=== PATIENT | female | born 1970 | race Caucasian/White ===

== ENCOUNTER → 2018-11-07 | Outpatient (CLI) | payer OTHER ==
--- NOTE | 2018-11-12 17:11 | MAM ---
EXAM DESCRIPTION: 3D Screening BILATERAL : Digital Mammography. CLINICAL HISTORY: 48 years Female ANNUAL SCREENING . No complaints. No personal or family history of breast cancer. Childbirth. Premenopausal. No HRT. Lifetime risk of developing breast cancer (Tyrer-Cuzick model)(%): 10.3. COMPARISON: Baseline study at this facility. TECHNIQUE: Bilateral CC and MLO projection full-field images, digital tomosynthesis mammographic technique. Bilateral digital 2-D full-field MLO images. CAD not available for tomosynthesis or 2-D images. FINDINGS: The breast parenchymal density pattern is: Heterogeneously dense breast tissue, which may obscure small masses. No skin thickening or nipple retraction. Focal asymmetry and/or mass density in the posterior third of the right breast near the pectoral muscle at the 8:30 clock position. Some of this density has a serpiginous shape. No definite microcalcifications. Also adjacent focal asymmetry. The right breast appears larger than the left. The left breast is overly rotated laterally on the CC images. No new focal, stellate mass or density, focal asymmetry , and no suspicious microcalcifications left breast. IMPRESSION: BI-RADS CATEGORY: 0 - INCOMPLETE- Need additional imaging evaluation. FOLLOW-UP: Recall for additional imaging: Full-field right breast LM diagnostic tomosynthesis. Repeat left breast CC tomosynthesis with slight lateral exaggeration. Targeted right breast ultrasound if indicated by diagnostic images.. Written communication concerning the IMPRESSION and Follow-up, will be mailed to the patient and referring health care provider. Electronically signed by: Itz Saab MD 11/12/2018 5:08 PM CDT
== END ==
LOC: MAMMO 13:00
PROVIDERS: ATTEND General Practice
DX: Z12.31 Encounter for screening mammogram for malignant neoplasm of breast (principal)

== ENCOUNTER → 2018-11-25 | Outpatient (CLI) | payer OTHER ==
--- NOTE | 2018-11-25 15:52 | MAM ---
EXAM DESCRIPTION: Breast,Right (accession [id number]), 3D Diagnostic, Bilateral (accession [id number]): Ultrasound CLINICAL HISTORY: 48 yearsFemaleINCONCLUSIVE MAMMOGRAM mass densities posterior right breast near the chest wall. COMPARISON: Bilateral screening digital breast tomosynthesis 11/07/2018. TECHNIQUE: Right breast LM projection full-field images, digital mammographic tomosynthesis technique. Exaggerated left breast CC projection digital mammographic tomosynthesis technique CAD not available . Transcutaneous scanning of the right breast utilizing altamirano-scale and Doppler modes. Scanning performed by the multi sensor operator and Dr. Saab. FINDINGS: The breast parenchymal density pattern is: Scattered areas of fibroglandular density. No skin thickening or nipple retraction multiple mass densities are noted at the 9:00 position of the right breast near the chest wall. Circumscribed thin lobulated margins. No definite calcifications. More dense than the surrounding fibroglandular tissue. Ultrasound: Scanning of the posterior third of the right breast from the posterior nipple line slightly laterally 8:00 to 10:00. 10 cm from the nipple at the 9:00 position. Multiple anechoic masses with circumscribed echogenic margins, central posterior acoustic enhancement and minimal image shadowing. Nonvascular. These masses range in diameter from 3.0 to 7.2 mm. Consistent with clustered and multiple cysts. No dominant solid mass. No parenchymal edema or large calcifications. No overlying skin changes. IMPRESSION: Benign exam. BIRAD CATEGORY: 2 BENIGN FINDINGS. RECOMMENDATIONS: FOLLOW UP: Return to routine digital bilateral mammographic screening, one year interval from October 2018 Written communication explaining the IMPRESSION and follow-up, will be mailed to the patient and referring health care provider. The FINDINGS and the FOLLOW-UP plan were reviewed in person with the patient after the examination. According to the [employer], yearly mammograms are recommended starting at age 40 and continuing as long as a woman is in good health. Any breast change noted on a breast self-exam should be reported promptly to the patient's healthcare provider. Breast MRI is recommended for women with an approximately 20-25% or greater lifetime risk of breast cancer, including women with a strong family history of breast or ovarian cancer and women who have been treated for Hodgkin's disease. A negative mammographic report should not delay tissue diagnosis in patients with significant clinical history or physical findings. Extremely dense breast tissue limits the sensitivity of digital mammography. Electronically signed by: Itz Saab MD 11/25/2018 3:50 PM CDT
== END ==
LOC: MAMMO 13:02
PROVIDERS: ATTEND General Practice
DX: R92.2 Inconclusive mammogram (principal)
CPT/HCPCS: 76641; 77066; G0279